=== PATIENT | female | born 1965 | race Caucasian/White ===

== ENCOUNTER 2016-09-15 14:15 | Observation (INO) | payer OTHER ==
[2016-09-15] MEDS ORDERED: Zofran 4 MG/2 ML VIAL IV ONE (14:40)
[2016-09-15] MEDS ORDERED: Sodium Chloride 0.9% 1000 ML 1,000 ML IV STA (14:40)
[2016-09-15] MEDS ORDERED: Klor Con 10 MEQ PO ONE ×2 (14:44→14:54)
--- NOTE | 2016-09-15 14:52 | ERPHSYRPT ---
- History of Present Illness Source: patient Exam Limitations: no limitations Patient Subjective Stated Complaint: patient states she has been home from [facility] for a few weeks. pt states she has been feeling weak over the past few days. pt states she has a hx of liver disease. pt denies any pain. Triage Nursing Assessment: pt jaundice, sclera yellow. pt warm, dry. pt afebrile. alert and oriented x3. Timing/Duration: week(s) Severity: moderate Character of Deficits: new weakness Deficits: no difficulties Baseline/Normal Cognition: alert oriented x 3 Current Cognition: alert oriented x 3 Baseline Gait: walks w/o assistance Associated Symptoms: fatigue, fever, chills, nausea, vomiting, weakness Hx Tetanus, Diphtheria Vaccination/Date Given: Yes (up to date) Hx Influenza Vaccination/Date Given: Yes Hx Pneumococcal Vaccination/Date Given: Yes Immunizations Up to Date: Yes <IRAJ CHRISTOPHER - Last Filed: 09/15/16 16:35> <CONSTANCE GARCIA - Last Filed: 09/16/16 08:59> - History of Present Illness Time Seen by Provider: 09/15/16 14:30 Physician History: 51 y/o female with history of MS, cirrhosis, tylenol overdose, baclofen overdose and recent liver failure who was just released from [facility] 2 weeks ago for liver failure comes to the ER with complaints of bilateral leg weakness, nausea, vomiting, yellowing of eyes and easy bruising. Pt mentions that last month she was transferred from [place] to [place] and then to [facility]. The patient mentions she was admitted for liver failure and was placed on IV antibiotics. Pt also admits to cough, runny nose and generalized weakness. Pt had labs done today which showed a total bili of 8.9, Hgb of 7.7 and a Mg of 0.8. (IRAJ CHRISTOPHER) Allergies/Adverse Reactions: No Known Drug Allergies Allergy (Unverified 09/15/16 14:26) Home Medications: Omeprazole [Prilosec] 20 mg PO DAILY 08/17/16 [History] - Review of Systems Constitutional: No Fever, No Chills Eyes: No Symptoms Ears, Nose, & Throat: No Symptoms Respiratory: Cough, No Dyspnea Cardiac: No Chest Pain, No Edema, No Syncope Abdominal/Gastrointestinal: Nausea, Vomiting, No Abdominal Pain, No Diarrhea Genitourinary Symptoms: No Dysuria Musculoskeletal: No Back Pain, No Neck Pain Skin: Skin Lesions, No Rash Neurological: Dizziness, Focal Weakness, No Sensory Changes Psychological: No Symptoms Endocrine: No Symptoms All Other Systems: Reviewed and Negative <IRAJ CHRISTOPHER - Last Filed: 09/15/16 16:35> - Past Medical History Pertinent Past Medical History: Yes Neurological History: Stroke, Other ENT History: No Pertinent History Cardiac History: No Pertinent History Respiratory History: Bronchitis Endocrine Medical History: No Pertinent History Musculoskeletal History: Other GI Medical History: Crohns Disease History: No Pertinent History Psycho-Social History: Depression Female Reproductive Disorders: Abnormal Uterine Bleeding Other Medical History: LUMBAR SPRAIN, TINEA CRURIS, MULTIPLE SCLEROSIS, MULTIPLE STROKES/TIA'S - Past Surgical History Past Surgical History: Yes Neuro Surgical History: No Pertinent History Cardiac: No Pertinent History Respiratory: No Pertinent History Gastrointestinal: Colon Resection Genitourinary: No Pertinent History Musculoskeletal: No Pertinent History Female Surgical History: Hysterectomy - Social History Smoking Status: Current every day smoker How long have you smoked: 35 Exposure to second hand smoke: No Drug Use: none Patient Lives Alone: No <IRAJ CHRISTOPHER - Last Filed: 09/15/16 16:35> - Stephy Coma Scale Best Eye Response (Stephy): (4) open spontaneously Best Verbal Response (Stephy): (5) oriented Best Motor Response (Stephy): (6) obeys commands [place] Total: 15 - Physical Exam General Appearance: no apparent distress, alert Eye Exam: bilateral eye: PERRL, EOMI Ears, Nose, Throat Exam: normal ENT inspection, moist mucous membranes Neck Exam: normal inspection, non-tender, supple Respiratory: normal breath sounds, lungs clear, airway intact, No respiratory distress Cardiovascular: regular rate/rhythm, No edema Gastrointestinal: soft, normal bowel sounds, No tenderness, No distention Back Exam: normal inspection Extremity Exam: normal inspection, No pedal edema Mental Status: alert, 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 Once again her bili is 8.9 with the last bili from that was 3.4. Pt has an ammonia level that is 100 but is not encephalopathic. The CT scan head and CXR are within normal limits. The abdominal US shows an enlarged liver. Pt has been accepted to [facility] for failure to thrive and liver failure (IRAJ CHRISTOPHER) patient is awaiting transfer to [facility] for recently diagnosed liver failure and elevated ammonia level. Apparently there are no beds available at [facility]. Dr. Jarrett was contacted and has agreed to admit patient until a bed becomes available. Patient was also given 2 g of magnesium and 40 mEq of KCl for magnesium level of 1.3 and potassium of 3. Patient has been hemodynamically stable throughout her ED stay. Patient was also given lactulose and this has decreased her ammonia along with improving her mental status as well. 09/16/16 08:53 (CONSTANCE GARCIA) - Departure Time of Disposition: 16:38 Departure Disposition: Transfer Critical Care Time: Yes Critical Care Time(excluding separately billable procedures): 75-104 minutes <IRAJ CHRISTOPHER - Last Filed: 09/15/16 16:35> - Departure Departure Disposition: Observation <CONSTANCE GARCIA - Last Filed: 09/16/16 08:59> - Departure Clinical Impression: Failure to thrive, Liver failure, Hypomagnesemia, Hypokalemia Condition: Stable Referrals: NAVIN TATE MD [Primary Care Provider] -
[2016-09-15] MEDS ORDERED: Zofran 4 MG/2 ML VIAL ONE (14:54)
[2016-09-15] MEDS ORDERED: Magnesium 1 Gm / 100 Ml D5W*** 200 ML IV ONE (14:55)
[2016-09-15] MEDS ORDERED: Sodium Chloride 0.9% 1000 ML 1,000 ML ONE (14:55)
[2016-09-15] MEDS: Magnesium 1 Gm / 100 Ml D5W*** 100 ML IV SCH ×2 (14:58→15:50)
[2016-09-15 15:23] LABS: INR 1.54 (0.8-3.0)
[2016-09-15 15:26] LABS: PTT 40.2 SECONDS (25.3-37.0)
[2016-09-15 15:30] LABS: Direct Bilirubin 5.85 MG/DL (0.0-0.2)
[2016-09-15 15:32] LABS: ACETAMINOPHEN < 2.0 ug/ml (10-30)
--- NOTE | 2016-09-15 15:37 | XRAY ---
Indication: Nausea, vomiting, dehydration. Comparison: August 17, 2016 AP/lateral chest hyperinflated and clear. Heart is not enlarged. Bony thorax intact. No new/acute findings.
--- NOTE | 2016-09-15 15:41 | XRAY ---
Indication: Lethargy. Leg weakness. Multiple contiguous axial images obtained through the head without contrast. Comparison: August 19, 2016 There are now tiny air bubbles in what appears to be the right parasellar internal carotid artery, presumed iatrogenic. Stable minimal periventricular degenerative micro-ischemia. No acute intracranial hemorrhage, abnormal extra-axial fluid collection, or mass effect. Fourth ventricle is midline without hydrocephalus. Mckay-white matter differentiation preserved. Bony calvarium intact. Visualized paranasal sinuses and mastoid air cells are pneumatized and clear. Impression: Air bubbles in the right parasellar internal carotid artery possibly iatrogenic from IV access. Stable degenerative micro-ischemia. No acute intracranial abnormalities. CT DI is 67.80
[2016-09-15 15:53] LABS: Collection Type CATH
[2016-09-15 15:54] LABS: ADD URINE CULTURE? NO (NO); COMPLETE URINE MICROSCOPIC? YES; Epithelial Cells RARE /HPF (FEW); Hyaline Casts 0-2 /LPF (0-2); WBC 0-2 /HPF (0-5)
[2016-09-15] MEDS ORDERED: Enulose 10 GM/15 ML PO ONE (16:45)
--- NOTE | 2016-09-15 22:34 | XRAY ---
Indication: Jaundice. Elevated bilirubin. Two-dimensional right upper quadrant abdominal sonogram performed. Comparison: None Gallbladder normally distended without gallstones, wall thickening, or pericholecystic fluid. Common bile duct measures 4.5 mm. No intrahepatic distention. Fatty echogenic liver without focal solid/cystic mass. No ascites. The remaining visualized pancreas and right kidney sonographically unremarkable. Right kidney measures 11.7 cm in length. Impression: Fatty liver. Remaining right upper quadrant sonogram is negative. Comment: Preliminary report was given.
[2016-09-16] MEDS ORDERED: Sodium Chloride 0.9% 1000 ML 1,000 ML IV SCH (05:30)
[2016-09-16] MEDS ORDERED: Sodium Chloride 0.9% 1000 ML 1,000 ML ONE (05:32)
[2016-09-16 08:08] LABS: ALBUMIN 2.5 g/dL (3.4-5.0); ALKALINE PHOSPHATASE 108 U/L (46-116); ANION GAP 15.6 MEQ/L (5-15); BILIRUBIN,TOTAL 7.6 mg/dL (0.2-1.0); BLOOD UREA NITROGEN 2 mg/dL (9-20); CHLORIDE 106 mEq/L (98-107); Direct Bilirubin 5.01 MG/DL (0.0-0.2); Glucose 99 MG/DL (70-110); SGOT/AST 126 U/L (15-37); SGPT/ALT 40 U/L (12-78); SODIUM 141 mEq/L (136-145); Total Protein 6.2 gm/dL (6.4-8.2)
[2016-09-16] MEDS ORDERED: Magnesium 1 Gm / 100 Ml D5W*** 100 ML IV SCH (08:30)
[2016-09-16] MEDS ORDERED: Magnesium Sulfate 1 GM/2 ML VIAL*** 2 GM in Sodium Chloride 0.9% 100 ML IVPB 100 ML IV ONE (08:45)
[2016-09-16 12:18] VITALS: BP 96/54; PULSE 101; O2SAT 94
[2016-09-16] MEDS ORDERED: LACTULOSE 20 GM/30ML UD CUP PO PRN (13:02)
--- NOTE | 2016-09-16 13:14 | PCM.HP ---
History of Present Illness - Chief Complaint Chief Complaint: Liver Failre Date: 09/16/16 History of Present Illness: is a 51 year old female. who was diagnosed with liver failure and was being treated at discharged on . She is unsure who she was to follow up with from that discharge. We have the discharge order from the hospitalization but none of the records are available yet re-requesting these now. She was seen in the ED due to increased weakness, inability to ambulate, increased yellow of her skin, easy bruising yesterday. Found to have ammonia of 100 and bilirubin of 8 which was increased from previous 3 per report. The ED made arrangments for tranfer to from ED however she stayed the night in the ED and no beds are available and thus she is placed [facility] for observation and continued treatment. She has no GI doctor she states. She is feeling better now with fluids she received. Had BM with the lactulose and is feeling better in this rearguard as well. - Review of Systems Constitutional: Fatigue, Lethargy, Malaise, No Fever, No Chills Eyes: No Discharge, No Eye Pain Ears, Nose, & Throat: No Ear Pain, No Ear Discharge, No Hearing Changes, No Tinnitus, No Sinus Drainage Respiratory: No Cough, No Orthopnea, No Short Of Breath Cardiac: No Chest Pain, No Edema, No Palpitations Abdominal/Gastrointestinal: Nausea, No Abdominal Pain, No Vomiting, No Diarrhea , No Constipation, No Melena Genitourinary Symptoms: No Dysuria, No Frequency, No Hematuria Musculoskeletal: No Arthralgias, No Back Pain Skin: No Cellulitis, No Decubiti, No Induration Neurological: No Dizziness, No Focal Weakness Psychological: No Alcohol Abuse, No Drug Abuse Endocrine: No Polyuria Hematologic/Lymphatic: Easy Bleeding, Easy Bruising, No Anemia, No Blood Clots Medications & Allergies Home Medications: Home Medication List Omeprazole [Prilosec] 20 mg PO DAILY 08/17/16 [History Confirmed 09/16/16] Ciprofloxacin HCl 500 mg [Cipro 500 MG] 500 mg PO DAILY 09/16/16 [History Confirmed 09/16/16] Magnesium Oxide [Magnesium] 400 mg PO BID 09/16/16 [History Confirmed 09/16/16] Miconazole Nitrate [Secura Antifungal] 92 gm TP BID 09/16/16 [History Confirmed 09/16/16] Potassium Chloride 20 Meq [Klor-Con 20 MEQ] 20 meq PO DAILY 09/16/16 [History Confirmed 09/16/16] Venlafaxine HCl [Venlafaxine HCl ER] 150 mg PO DAILY 09/16/16 [History Confirmed 09/16/16] Allergies/Adverse Reactions: Allergies Allergy/AdvReac Type Severity Reaction Status Date / Time No Known Drug Allergies Allergy Verified 09/16/16 10:08 - Past Medical History Past Medical History: Yes Neurological History: Stroke, Other ENT History: No Pertinent History Cardiac History: No Pertinent History Respiratory History: Bronchitis Endocrine Medical History: No Pertinent History Musculoskelatal History: Other GI Medical History: Cirrhosis, Crohns Disease History: No Pertinent History Pyscho-Social History: Depression Reproductive Disorders: Abnormal Uterine Bleeding Comment: LUMBAR SPRAIN, TINEA CRURIS, MULTIPLE SCLEROSIS, MULTIPLE STROKES/TIA'S - Female History Are you now?: No - Past Surgical History Past Surgical History: Yes Neuro Surgical History: No Pertinent History Cardiac History: No Pertinent History Respiratory Surgery: No Pertinent History GI Surgical History: Colon Resection Genitourinary Surgical Hx: No Pertinent History Musculskeletal Surgical Hx: Orthopedic Surgery Female Surgical History: Hysterectomy Other Surgical History: BACK - Social History Smoking Status: Current every day smoker How long have you smoked: 30+ Exposure to second hand smoke: Yes Alcohol: None Drug Use: none - Physical Exam Vital Signs: Vital Signs - 24 hr Temp Pulse Resp BP BP Pulse Ox 09/16/16 12:00 98.3 F 101 H 18 96/54 94 L 09/16/16 09:34 97.1 F 99 H 18 110/55 95 09/16/16 08:38 103 H 18 96/57 09/16/16 07:30 100 H 18 105/58 09/16/16 06:30 103 H 20 109/56 95 09/16/16 05:30 103 H 18 122/63 98 09/16/16 04:30 103 H 16 102/58 97 09/16/16 03:36 102 H 20 107/74 97 09/16/16 03:00 106 H 20 96 09/16/16 02:00 102 H 16 96 09/16/16 01:00 102 H 18 97 09/15/16 23:30 116 H 18 96 09/15/16 23:00 110 H 20 95 09/15/16 22:40 106 H 19 96 09/15/16 21:09 104 H 20 106/55 96 09/15/16 20:40 102 H 20 117/68 97 09/15/16 19:59 102 H 18 112/57 97 09/15/16 19:56 102 H 17 105/64 97 09/15/16 18:45 104 H 18 120/73 98 09/15/16 18:07 109 H 17 96/70 98 09/15/16 17:05 100 H 16 107/60 99 09/15/16 16:38 99 09/15/16 16:03 108 H 18 126/70 97 09/15/16 15:25 113 H 18 123/84 09/15/16 14:18 97.8 F 115 H 16 123/80 99 General Appearance: no apparent distress Neurologic Exam: alert, oriented x 3, cooperative Eye Exam: PERRL/EOMI, scleral icterus, pale conjunctivae Ears, Nose, Throat Exam: dry mucous membranes Neck Exam: non-tender, supple Respiratory Exam: normal breath sounds, lungs clear Cardiovascular Exam: regular rate/rhythm, normal heart sounds Gastrointestinal/Abdomen Exam: soft, normal bowel sounds, hepatomegaly, No tenderness, No distention, No mass Extremity Exam: normal inspection, No calf tenderness, No pedal edema Skin Exam: warm, dry, jaundice Assessment/Plan (1) Hepatic encephalopathy Current Visit: Yes Status: Acute Assessment & Plan: will try to get the rest of the records from her [facility] stay she states she had egd and does not think she has varices she is improving now and clear mentation but the large increase in bilirubin compared to previous in just 9 days. will continue lactulose as needed to keep stools >3 keep cipro for sbp ppx hold anticoags with the liver failure continue ppi repeat and replace mag and k will cut back fluid rate she apparently had ascities drained at [facility] also it sounds like but not sure if she had biopsy awaiting records discussed she needs to be established with copy coordinator for outpatient follow up of these issues. Code(s): K72.90 - HEPATIC FAILURE, UNSPECIFIED WITHOUT COMA (2) Hypokalemia Current Visit: Yes Status: Acute Code(s): E87.6 - HYPOKALEMIA (3) Hypomagnesemia Current Visit: Yes Status: Acute Code(s): E83.42 - HYPOMAGNESEMIA (4) Liver failure Current Visit: Yes Status: Acute
[2016-09-16 14:51] LABS: ANION GAP 16.4 MEQ/L (5-15); Carbon Dioxide 21.6 mEq/L (21-32); MAGNESIUM 1.7 mg/dL (1.8-2.4)
[2016-09-16] MEDS ORDERED: MAG-OX 400 PO SCH (15:00)
[2016-09-16] MEDS ORDERED: Cipro 500 MG PO SCH (15:00)
[2016-09-16] MEDS ORDERED: Protonix 40MG Tablet PO SCH (15:00)
[2016-09-16] MEDS ORDERED: Effexor XR 75 MG PO SCH (15:00)
[2016-09-16 15:02] LABS: Potassium 2.8 mEq/L (3.5-5.1)
[2016-09-16] MEDS ORDERED: Klor Con 10 MEQ PO ONE (15:04)
[2016-09-17] MEDS ORDERED: NON-FORMULARY ITEM (Omeprazole [Prilosec] 20 MG) PO SCH (10:00)
[2016-09-17] MEDS ORDERED: Klor Con 10 MEQ PO SCH (10:00)
[2016-09-17] MEDS ORDERED: NON-FORMULARY ITEM (Venlafaxine Hcl [Venlafaxine Hcl Er] 150 MG) PO SCH (10:00)
[2016-09-17] MEDS ORDERED: NON-FORMULARY ITEM (Potassium Chloride 20 Meq [Klor-Con 20 Meq] 20 MEQ) PO SCH (10:00)
== END 2016-09-16 15:30 | disposition short-term general hospital (02) ==
LOC: ED 14:15 → MED SURG 09-16 09:33
PROVIDERS: ADMIT Family Medicine; ATTEND Family Medicine
DX: K72.90 Hepatic failure, unspecified without coma (principal); E87.6 Hypokalemia; E83.42 Hypomagnesemia
CPT/HCPCS: 36000; 36415; 70450; 71020; 76705; 80048; 80053; 80307; 81000; 82140; 82248; 83735; 85610; 85730; 86850; 86900; 86901; 87040; 96360; 96361; 96365; 96366; 96374; 99285; G0378; G0479; G0481; J2405; J3475; P9612

== ENCOUNTER 2016-09-28 13:56 | Inpatient (IN) | payer OTHER ==
[2016-09-28] MEDS ORDERED: Sodium Chloride 0.9% 1000 ML 1,000 ML IV STA (14:19)
[2016-09-28] MEDS ORDERED: Zofran 4 MG/2 ML VIAL IV ONE (14:19)
[2016-09-28] MEDS ORDERED: Zofran 4 MG/2 ML VIAL ONE (14:23)
[2016-09-28] MEDS ORDERED: Sodium Chloride 0.9% 1000 ML 1,000 ML ONE ×2 (14:23→16:05)
[2016-09-28] MEDS ORDERED: PROTONIX 40 MG IV IV ONE ×2 (14:27→14:50)
--- NOTE | 2016-09-28 14:42 | ERPHSYRPT ---
- History of Present Illness Time Seen by Provider: 09/28/16 14:10 Historian: patient Exam Limitations: clinical condition Patient Subjective Stated Complaint: pt sent here by dr maciel to be seen for possible fluids. pt states she is weak,dry heaves today, able to keep eat and drink today, loose stools last 2 days, Triage Nursing Assessment: pt alert but weak, able to get from wc to bed with assist of one,pt is armida, she states she has liver failure, and working getting on liver transplant list Physician History: PATIENT WITH HISTORY OF END STAGE LIVER DISEASE, MUTIPLE SCLEROSIS, ACETOMINOPHEN AND BACOFEN OVERDOSES, RECENTLY RELEASED FROM [facility] ON 09/23/2016 AFTER A 1 WEEK HOSPITALIZATION, NOW COMPLAINS OF DRY HEAVES OCCASIONAL EMESIS PAST FEW DAYS ASSOCIATED WITH GENERALIZED ABDOMINAL PAINS, WEAKNESS. DENIES FEVER, CHILLS COUGH. Timing/Duration: day(s) Activities at Onset: activity Quality: throbbing Abdominal Pain Onset Location: generalized abdomen Pain Radiation: no radiation Severity of Pain-Max: moderate Severity of Pain-Current: moderate Associated Symptoms: diarrhea, fatigue, nausea, vomiting Previous symptoms: same symptoms as today Allergies/Adverse Reactions: No Known Drug Allergies Allergy (Verified 09/28/16 14:09) Home Medications: Omeprazole [Prilosec] 20 mg PO DAILY 08/17/16 [History] Ciprofloxacin HCl 500 mg [Cipro 500 MG] 500 mg PO DAILY 09/16/16 [History] Magnesium Oxide [Magnesium] 400 mg PO BID 09/16/16 [History] Miconazole Nitrate [Secura Antifungal] 92 gm TP BID 09/16/16 [History] Potassium Chloride 20 Meq [Klor-Con 20 MEQ] 20 meq PO DAILY 09/16/16 [History] Venlafaxine HCl [Venlafaxine HCl ER] 150 mg PO DAILY 09/16/16 [History] Hx Tetanus, Diphtheria Vaccination/Date Given: Yes (up to date) Hx Influenza Vaccination/Date Given: Yes Hx Pneumococcal Vaccination/Date Given: No Immunizations Up to Date: Yes - Review of Systems Constitutional: Weakness, No Fever, No Chills Eyes: Other (JAUNDICE ) Ears, Nose, & Throat: No Symptoms Respiratory: No Symptoms, No Cough, No Dyspnea Cardiac: No Symptoms, No Chest Pain, No Edema, No Syncope Abdominal/Gastrointestinal: Abdominal Pain, Vomiting, No Nausea, No Diarrhea Genitourinary Symptoms: No Symptoms, No Dysuria Musculoskeletal: No Symptoms, No Back Pain, No Neck Pain Skin: No Rash Neurological: No Symptoms, No Dizziness, No Focal Weakness, No Sensory Changes Psychological: No Symptoms Endocrine: No Symptoms All Other Systems: Reviewed and Negative - Past Medical History Pertinent Past Medical History: Yes Neurological History: Stroke, Other ENT History: No Pertinent History Cardiac History: No Pertinent History Respiratory History: Bronchitis Endocrine Medical History: No Pertinent History Musculoskeletal History: Other GI Medical History: Cirrhosis, Crohns Disease History: No Pertinent History Psycho-Social History: Depression Female Reproductive Disorders: Abnormal Uterine Bleeding Other Medical History: LUMBAR SPRAIN, TINEA CRURIS, MULTIPLE SCLEROSIS, MULTIPLE STROKES/TIA'S - Past Surgical History Past Surgical History: Yes Neuro Surgical History: No Pertinent History Cardiac: No Pertinent History Respiratory: No Pertinent History Gastrointestinal: Colon Resection Genitourinary: No Pertinent History Musculoskeletal: Orthopedic Surgery Female Surgical History: Hysterectomy Other Surgical History: BACK - Social History Smoking Status: Current some day smoker How long have you smoked: 30+ Exposure to second hand smoke: Yes Drug Use: none Patient Lives Alone: Yes - Female History Hx Last Menstrual Period: post - Nursing Vital Signs Nursing Vital Signs: Initial Vital Signs Temperature 98.3 F Temperature Source Oral Pulse Rate 109 Respiratory Rate 16 Blood Pressure [] 102/47 Pain Intensity 8 - Physical Exam General Appearance: no apparent distress, alert Eye Exam: PERRL/EOMI, eyes nml inspection, scleral icterus Ears, Nose, Throat Exam: normal ENT inspection, pharynx normal, moist mucous membranes Neck Exam: normal inspection, non-tender, supple, full range of motion Respiratory Exam: normal breath sounds, lungs clear, No respiratory distress Cardiovascular Exam: regular rate/rhythm, normal heart sounds Gastrointestinal/Abdomen Exam: soft, normal bowel sounds, No tenderness ( PERIUMBILICAL TENDERNESS), No mass Back Exam: normal inspection, normal range of motion, No CVA tenderness, No vertebral tenderness Extremity Exam: normal inspection, normal range of motion, pelvis stable Neurologic Exam: alert, oriented x 3, cooperative, normal mood/affect, nml cerebellar function, sensation nml, No motor deficits Skin Exam: normal color, warm, dry SpO2 Interpretation: normal SpO2: 95 Oxygen Delivery: Room Air - Course EKG Interpreted by Me: RATE, Sinus Rhythm, Sinus Tach, NORMAL AXIS - Radiology Exams Chest X-ray Interpretation: Discussed w/ radiologist, Negative, No Infiltrates Ordered Tests: Active Orders 24 hr Category Date Time Status Clean Catch Urine Specimen STAT Care 09/28/16 14:19 Active EKG-ER Only STAT Care 09/28/16 14:22 Active IV Insertion STAT Care 09/28/16 14:19 Active CHEST 1 VIEW (PORTABLE) Stat Exams 09/28/16 14:44 Completed AMYLASE Stat Lab 09/28/16 14:20 Completed BLOOD CULTURE Stat Lab 09/28/16 14:51 Received CBC W DIFF Stat Lab 09/28/16 14:20 Completed CMP Stat Lab 09/28/16 14:20 Completed LIPASE Stat Lab 09/28/16 14:20 Completed Lactic Acid Urgent Lab 09/28/16 14:40 Completed MAG [MAGNESIUM] Stat Lab 09/28/16 14:20 Completed PROTIME WITH INR Stat Lab 09/28/16 14:20 Completed TROPONIN Q3H Lab 09/28/16 15:10 Completed TROPONIN Q3H Lab 09/28/16 17:30 Ordered TROPONIN Q3H Lab 09/28/16 20:30 Ordered TROPONIN Q3H Lab 09/28/16 23:30 Ordered TROPONIN Q3H Lab 09/29/16 02:30 Ordered UA Stat Lab 09/28/16 14:20 Ordered Transfer Order Routine Transfer 09/28/16 15:45 Ordered Medication Summary Generic Name Dose Route Start Last Admin Trade Name Freq PRN Reason Stop Dose Admin Potassium Chloride 100 mls @ 50 mls/hr 09/28/16 15:22 09/28/16 15:31 Potassium Chloride 20 Meq In Water 100ml IV 09/28/16 17:21 50 mls/hr STAT ONE Administration Discontinued Medications Generic Name Dose Route Start Last Admin Trade Name Freq PRN Reason Stop Dose Admin Fentanyl Citrate 100 mcg 09/28/16 14:58 09/28/16 15:03 Sublimaze 100 Mcg/2 Ml IV 09/28/16 14:59 100 mcg STAT ONE Administration Fentanyl Citrate Confirm 09/28/16 15:03 Sublimaze 100 Mcg/2 Ml Administered 09/28/16 15:04 Dose 100 mcg .ROUTE .STK-MED ONE Sodium Chloride 1,000 mls @ 999 mls/hr 09/28/16 14:19 09/28/16 14:26 Sodium Chloride 0.9% 1000 Ml IV 09/28/16 15:19 999 mls/hr .Q1H1M STA Administration Sodium Chloride Confirm 09/28/16 14:23 Sodium Chloride 0.9% 1000 Ml Administered 09/28/16 14:24 Dose 1,000 mls @ ud .ROUTE .STK-MED ONE Magnesium Sulfate/Dextrose Confirm 09/28/16 15:29 Magnesium 1 Gm / 100 Ml D5w Administered 09/28/16 15:30 Dose 100 mls @ ud IV .STK-MED ONE Potassium Chloride Confirm 09/28/16 15:29 Potassium Chloride 20 Meq In Water 100ml Administered 09/28/16 15:30 Dose 100 mls @ ud IV .STK-MED ONE Lactulose 20 g 09/28/16 15:23 09/28/16 15:38 Enulose 10 Gm/15 Ml PO 09/28/16 15:24 20 g STAT ONE Administration Magnesium Sulfate 2 gm 09/28/16 15:21 09/28/16 15:38 Magnesium Sulfate 1 Gm/2 Ml Vial IV 09/28/16 15:22 2 gm STAT ONE Administration Ondansetron HCl 4 mg 09/28/16 14:19 09/28/16 14:26 Zofran 4 Mg/2 Ml Vial IV 09/28/16 14:20 4 mg STAT ONE Administration Ondansetron HCl Confirm 09/28/16 14:23 Zofran 4 Mg/2 Ml Vial Administered 09/28/16 14:24 Dose 4 mg .ROUTE .STK-MED ONE Pantoprazole Sodium 40 mg 09/28/16 14:27 09/28/16 14:53 Protonix 40 Mg Iv IV 09/28/16 14:28 40 mg STAT ONE Administration Pantoprazole Sodium Confirm 09/28/16 14:50 Protonix 40 Mg Iv Administered 09/28/16 14:51 Dose 40 mg IV .STK-MED ONE Lab/Rad Data: Laboratory Result Diagrams 09/28/16 14:20 09/28/16 14:20 Laboratory Results 09/28/16 09/28/16 09/28/16 Range/Units 15:10 14:40 14:20 WBC (4.0-10.5) K/mm3 RBC (4.1-5.4) M/mm3 Hgb (12.0-16.0) gm/dl Hct (35-47) % MCV (78-100) fl MCH (26-32) pg MCHC (32-36) g/dl RDW (11.5-14.0) % Plt Count (150-450) K/mm3 MPV (6-9.5) fl Gran % (36.0-66.0) % Lymphocytes % (24.0-44.0) % Monocytes % (0.0-12.0) % Eosinophils % (0.00-5.0) % Basophils % (0.0-0.4) % Basophils # (0-0.4) INR (0.8-3.0) Sodium (136-145) mEq/L Potassium (3.5-5.1) mEq/L Chloride (98-107) mEq/L Carbon Dioxide (21-32) mEq/L Anion Gap (5-15) MEQ/L BUN (9-20) mg/dL Creatinine (0.55-1.30) mg/dl Estimated GFR ML/MIN Glucose (70-110) MG/DL Lactic Acid 1.9 (0.4-2.0) Calcium (8.5-10.1) mg/dL Magnesium 1.0 L* (1.8-2.4) mg/dL Total Bilirubin (0.2-1.0) mg/dL AST (15-37) U/L ALT (12-78) U/L Alkaline Phosphatase (46-116) U/L Ammonia (11-32) MMOL/l Troponin I < 0.017 (0.000-0.056) ng/ml Serum Total Protein (6.4-8.2) gm/dL Albumin (3.4-5.0) g/dL Amylase (25-115) U/L Lipase (73-393) U/L 09/28/16 09/28/16 09/28/16 Range/Units 14:20 14:20 14:20 WBC (4.0-10.5) K/mm3 RBC (4.1-5.4) M/mm3 Hgb (12.0-16.0) gm/dl Hct (35-47) % MCV (78-100) fl MCH (26-32) pg MCHC (32-36) g/dl RDW (11.5-14.0) % Plt Count (150-450) K/mm3 MPV (6-9.5) fl Gran % (36.0-66.0) % Lymphocytes % (24.0-44.0) % Monocytes % (0.0-12.0) % Eosinophils % (0.00-5.0) % Basophils % (0.0-0.4) % Basophils # (0-0.4) INR 1.57 (0.8-3.0) Sodium 141 (136-145) mEq/L Potassium 2.5 L* (3.5-5.1) mEq/L Chloride 101 (98-107) mEq/L Carbon Dioxide 23.7 (21-32) mEq/L Anion Gap 19.3 H (5-15) MEQ/L BUN 11 (9-20) mg/dL Creatinine 1.10 (0.55-1.30) mg/dl Estimated GFR 56 ML/MIN Glucose 73 (70-110) MG/DL Lactic Acid (0.4-2.0) Calcium 8.2 L (8.5-10.1) mg/dL Magnesium (1.8-2.4) mg/dL Total Bilirubin 10.6 H (0.2-1.0) mg/dL AST 140 H (15-37) U/L ALT 50 (12-78) U/L Alkaline Phosphatase 144 H (46-116) U/L Ammonia 59 H (11-32) MMOL/l Troponin I (0.000-0.056) ng/ml Serum Total Protein 7.2 (6.4-8.2) gm/dL Albumin 2.5 L (3.4-5.0) g/dL Amylase 19 L (25-115) U/L Lipase 54 L (73-393) U/L / Range/Units 14:20 WBC 10.4 (4.0-10.5) K/mm3 RBC 2.65 L (4.1-5.4) M/mm3 Hgb 9.0 L (12.0-16.0) gm/dl Hct 28.1 L (35-47) % MCV 106.0 H (78-100) fl MCH 33.9 H (26-32) pg MCHC 32.0 (32-36) g/dl RDW 19.3 H (11.5-14.0) % Plt Count 212 (150-450) K/mm3 MPV 11.7 H (6-9.5) fl Gran % 73.4 H (36.0-66.0) % Lymphocytes % 17.3 L (24.0-44.0) % Monocytes % 8.6 (0.0-12.0) % Eosinophils % 0.5 (0.00-5.0) % Basophils % 0.2 (0.0-0.4) % Basophils # 0.02 (0-0.4) INR (0.8-3.0) Sodium (136-145) mEq/L Potassium (3.5-5.1) mEq/L Chloride (98-107) mEq/L Carbon Dioxide (21-32) mEq/L Anion Gap (5-15) MEQ/L BUN (9-20) mg/dL Creatinine (0.55-1.30) mg/dl Estimated GFR ML/MIN Glucose (70-110) MG/DL Lactic Acid (0.4-2.0) Calcium (8.5-10.1) mg/dL Magnesium (1.8-2.4) mg/dL Total Bilirubin (0.2-1.0) mg/dL AST (15-37) U/L ALT (12-78) U/L Alkaline Phosphatase (46-116) U/L Ammonia (11-32) MMOL/l Troponin I (0.000-0.056) ng/ml Serum Total Protein (6.4-8.2) gm/dL Albumin (3.4-5.0) g/dL Amylase (25-115) U/L Lipase (73-393) U/L - Progress Progress Note: 09/28/16 15:51 PATIENT GIVEN BOLUS NORMAL SALINE 1 LITER OVER 1 HOUR, LACTULOSE 20GM FOR AMMONIA LEVEL 59, K-NAOMY 20MEQ IVPB FOR K-2.5 AND MAG SULFATE 2GM IVPB FOR MG- 1 Discussed with : Eliseo Will see patient in: hospital (full admit) (AT 1530 FOR ADMISSION) - Departure Time of Disposition: 16:00 Departure Disposition: In-patient Admission Clinical Impression: CIRRHOSIS WITH ENCEPHALOPATHY, HYPOKALEMIA, HYPOMAGNESEMIA Condition: Stable Critical Care Time: No Referrals: NAVIN MACIEL MD [Primary Care Provider] -
[2016-09-28 14:58] LABS: BASOPHIL % 0.2 % (0.0-0.4); Eosinophil % 0.5 % (0.00-5.0); Granulocytes % 73.4 % (36.0-66.0); Lymphocytes % 17.3 % (24.0-44.0); Mean Platelet Volume 11.7 fl (6-9.5); Monocytes % 8.6 % (0.0-12.0); Platelet Count 212 K/mm3 (150-450); Red Blood Count 2.65 M/mm3 (4.1-5.4); Red Cell Distribution Width 19.3 % (11.5-14.0); White Blood Count 10.4 K/mm3 (4.0-10.5)
[2016-09-28] MEDS ORDERED: SUBLIMAZE 100 MCG/2 ML IV ONE (14:58)
[2016-09-28 15:01] LABS: Mean Corpuscular Hemoglobin 33.9 pg (26-32)
[2016-09-28] MEDS ORDERED: SUBLIMAZE 100 MCG/2 ML ONE (15:03)
--- NOTE | 2016-09-28 15:05 | XRAY ---
Indication: Dyspnea. Jaundice. Comparison: September 15, 2016 Portable chest underinflated today and remains clear. Heart is not enlarged. No new/acute findings. Impression: Stable nonacute underinflated chest.
[2016-09-28 15:09] LABS: INR 1.57 (0.8-3.0); PROTIME 17.4 SECONDS (9.95-12.35)
[2016-09-28 15:17] LABS: ALBUMIN 2.5 g/dL (3.4-5.0); ANION GAP 19.3 MEQ/L (5-15); BILIRUBIN,TOTAL 10.6 mg/dL (0.2-1.0); Carbon Dioxide 23.7 mEq/L (21-32); Total Protein 7.2 gm/dL (6.4-8.2)
[2016-09-28 15:20] LABS: Potassium 2.5 mEq/L (3.5-5.1)
[2016-09-28] MEDS ORDERED: Magnesium Sulfate 1 GM/2 ML VIAL IV ONE (15:21)
[2016-09-28] MEDS ORDERED: POTASSIUM CHLORIDE 20 mEq IN WATER 100ML 100 ML IV ONE ×3 (15:22→17:34)
[2016-09-28] MEDS ORDERED: Enulose 10 GM/15 ML PO ONE (15:23)
[2016-09-28] MEDS ORDERED: Magnesium 1 Gm / 100 Ml D5W*** 100 ML IV ONE (15:29)
[2016-09-28] MEDS ORDERED: Sodium Chloride 0.9% 1000 ML 1,000 ML IV SCH (16:15)
[2016-09-28 17:11] LABS: Collection Type CATH
[2016-09-28 17:12] LABS: COMPLETE URINE MICROSCOPIC? YES; Ph 5.5 (5-6)
[2016-09-28] MEDS: PROTONIX 40 MG IV IV SCH (17:47)
[2016-09-28] MEDS: Sodium Chloride 0.9% W/ 20 mEq KCl/LITER 1,000 ML IV SCH (17:58)
[2016-09-28 20:04] LABS: WBC 0-2 /HPF (0-5)
[2016-09-28 20:05] LABS: Bacteria RARE /HPF (NEGATIVE); Epithelial Cells FEW /HPF (FEW)
[2016-09-28] MEDS: FLAGYL 500 MG IVPB 100 ML IV SCH (23:11)
[2016-09-28 23:30] LABS: Potassium 2.7 mEq/L (3.5-5.1); TROPONIN < 0.017 ng/ml (0.000-0.056)
[2016-09-28] MEDS ORDERED: POTASSIUM CHLORIDE 20 mEq IN WATER 100ML 100 ML IV SCH (23:45)
[2016-09-29] MEDS: POTASSIUM CHLORIDE 20 mEq IN WATER 100ML 100 ML IV SCH ×3 (00:26→02:55)
[2016-09-29] MEDS: Sodium Chloride 0.9% W/ 20 mEq KCl/LITER 1,000 ML IV SCH ×2 (05:12→17:40)
[2016-09-29 05:35] LABS: BASOPHIL % 0.4 % (0.0-0.4); Eosinophil % 1.3 % (0.00-5.0); Granulocytes % 60.2 % (36.0-66.0); Mean Cell Volume 107.4 fl (78-100); Mean Corpuscular Hemoglobin 33.8 pg (26-32); Mean Platelet Volume 11.5 fl (6-9.5); Monocytes % 11.1 % (0.0-12.0); Platelet Count 122 K/mm3 (150-450); Red Blood Count 2.04 M/mm3 (4.1-5.4); Red Cell Distribution Width 19.1 % (11.5-14.0); White Blood Count 5.3 K/mm3 (4.0-10.5)
[2016-09-29] MEDS: FLAGYL 500 MG IVPB 100 ML IV SCH ×3 (05:58→17:39)
[2016-09-29 06:06] LABS: ANION GAP 13.7 MEQ/L (5-15); BLOOD UREA NITROGEN 7 mg/dL (9-20); CHLORIDE 107 mEq/L (98-107); Carbon Dioxide 21.1 mEq/L (21-32); Glucose 56 MG/DL (70-110); Potassium 3.3 mEq/L (3.5-5.1); SODIUM 139 mEq/L (136-145)
[2016-09-29] MEDS ORDERED: Magnesium Sulfate 1 GM/2 ML VIAL IV ONE (08:27)
--- NOTE | 2016-09-29 08:27 | PCM.HP ---
History of Present Illness - Chief Complaint Chief Complaint: Cirrhosis w/ encephalopathy; hypokalemia; hypomagnesemia History of Present Illness: is a 51 year old female who reported to the ER feeling shakey and weak. She recently was diagnosed with cirrhosis and had a bout of c diff at in [place]. She has had diarrhea again the last few days. she denies blood in her stool - Review of Systems Constitutional: Weakness Respiratory: No Cough, No Short Of Breath Cardiac: No Chest Pain, No Edema, No Syncope Abdominal/Gastrointestinal: Diarrhea, No Nausea, No Vomiting, No Constipation Genitourinary Symptoms: No Dysuria Skin: No Rash All Other Systems: Reviewed and Negative Medications & Allergies Home Medications: Home Medication List Omeprazole [Prilosec] 20 mg PO DAILY 08/17/16 [History Confirmed 09/16/16] Ciprofloxacin HCl 500 mg [Cipro 500 MG] 500 mg PO DAILY 09/16/16 [History Confirmed 09/16/16] Magnesium Oxide [Magnesium] 400 mg PO BID 09/16/16 [History Confirmed 09/16/16] Miconazole Nitrate [Secura Antifungal] 92 gm TP BID 09/16/16 [History Confirmed 09/16/16] Potassium Chloride 20 Meq [Klor-Con 20 MEQ] 20 meq PO DAILY 09/16/16 [History Confirmed 09/16/16] Venlafaxine HCl [Venlafaxine HCl ER] 150 mg PO DAILY 09/16/16 [History Confirmed 09/16/16] Allergies/Adverse Reactions: Allergies Allergy/AdvReac Type Severity Reaction Status Date / Time No Known Drug Allergies Allergy Verified 09/28/16 17:51 - Past Medical History Past Medical History: Yes Neurological History: Stroke, Other ENT History: No Pertinent History Cardiac History: No Pertinent History Respiratory History: Bronchitis Endocrine Medical History: No Pertinent History Musculoskelatal History: Other GI Medical History: Cirrhosis, Crohns Disease History: No Pertinent History Pyscho-Social History: Depression Reproductive Disorders: Abnormal Uterine Bleeding Comment: LUMBAR SPRAIN, TINEA CRURIS, MULTIPLE SCLEROSIS, MULTIPLE STROKES/TIA'S - Female History Hx Last Menstrual Period: post Are you now?: No - Past Surgical History Past Surgical History: Yes Neuro Surgical History: No Pertinent History Cardiac History: No Pertinent History Respiratory Surgery: No Pertinent History GI Surgical History: Colon Resection Genitourinary Surgical Hx: No Pertinent History Musculskeletal Surgical Hx: Orthopedic Surgery Female Surgical History: Hysterectomy Other Surgical History: BACK - Social History Smoking Status: Current every day smoker How long have you smoked: 30 + Exposure to second hand smoke: Yes Alcohol: None Drug Use: none - Physical Exam Vital Signs: Vital Signs - 24 hr Temp Pulse Resp BP Pulse Ox 09/29/16 07:30 97.9 F 106 H 18 102/58 94 L 09/29/16 04:00 98.0 F 103 H 18 96/49 94 L 09/29/16 00:00 97.9 F 101 H 16 118/76 96 09/28/16 20:21 107 H 18 93 L 09/28/16 18:01 97.8 F 104 H 19 114/82 94 L 09/28/16 17:38 70 16 124/67 97 09/28/16 17:34 94 L 09/28/16 16:09 109 H 16 124/73 97 09/28/16 15:53 95 09/28/16 15:14 109 H 16 102/47 97 09/28/16 14:01 98.3 F 99 H 16 134/90 95 General Appearance: no apparent distress, alert Neurologic Exam: alert, oriented x 3 Eye Exam: scleral icterus Respiratory Exam: normal breath sounds, lungs clear, No respiratory distress Cardiovascular Exam: regular rate/rhythm, normal heart sounds, normal peripheral pulses Gastrointestinal/Abdomen Exam: soft, normal bowel sounds, No tenderness, No mass Skin Exam: jaundice Results - Labs Lab/Micro Results: Lab Results-Last 24 Hours 09/28/16 09/28/16 09/28/16 Range/Units 17:43 20:35 23:15 WBC (4.0-10.5) K/mm3 RBC (4.1-5.4) M/mm3 Hgb (12.0-16.0) gm/dl Hct (35-47) % MCV (78-100) fl MCH (26-32) pg MCHC (32-36) g/dl RDW (11.5-14.0) % Plt Count (150-450) K/mm3 MPV (6-9.5) fl Gran % (36.0-66.0) % Lymphocytes % (24.0-44.0) % Monocytes % (0.0-12.0) % Eosinophils % (0.00-5.0) % Basophils % (0.0-0.4) % Basophils # (0-0.4) Sodium (136-145) mEq/L Potassium 2.7 L* (3.5-5.1) mEq/L Chloride (98-107) mEq/L Carbon Dioxide (21-32) mEq/L Anion Gap (5-15) MEQ/L BUN (9-20) mg/dL Creatinine (0.55-1.30) mg/dl Estimated GFR ML/MIN Glucose (70-110) MG/DL Calcium (8.5-10.1) mg/dL Magnesium (1.8-2.4) mg/dL Troponin I 0.019 0.019 < 0.017 (0.000-0.056) ng/ml 09/29/16 09/29/16 09/29/16 Range/Units 02:30 05:13 05:13 WBC 5.3 (4.0-10.5) K/mm3 RBC 2.04 L (4.1-5.4) M/mm3 Hgb 6.9 L* (12.0-16.0) gm/dl Hct 21.9 L (35-47) % MCV 107.4 H (78-100) fl MCH 33.8 H (26-32) pg MCHC 31.5 L (32-36) g/dl RDW 19.1 H (11.5-14.0) % Plt Count 122 L (150-450) K/mm3 MPV 11.5 H (6-9.5) fl Gran % 60.2 (36.0-66.0) % Lymphocytes % 27.0 (24.0-44.0) % Monocytes % 11.1 (0.0-12.0) % Eosinophils % 1.3 (0.00-5.0) % Basophils % 0.4 (0.0-0.4) % Basophils # 0.02 (0-0.4) Sodium 139 (136-145) mEq/L Potassium 3.3 L (3.5-5.1) mEq/L Chloride 107 (98-107) mEq/L Carbon Dioxide 21.1 (21-32) mEq/L Anion Gap 13.7 (5-15) MEQ/L BUN 7 L (9-20) mg/dL Creatinine 0.94 (0.55-1.30) mg/dl Estimated GFR > 60 ML/MIN Glucose 56 L (70-110) MG/DL Calcium 7.3 L (8.5-10.1) mg/dL Magnesium (1.8-2.4) mg/dL Troponin I < 0.017 (0.000-0.056) ng/ml 09/29/16 Range/Units 05:13 WBC (4.0-10.5) K/mm3 RBC (4.1-5.4) M/mm3 Hgb (12.0-16.0) gm/dl Hct (35-47) % MCV (78-100) fl MCH (26-32) pg MCHC (32-36) g/dl RDW (11.5-14.0) % Plt Count (150-450) K/mm3 MPV (6-9.5) fl Gran % (36.0-66.0) % Lymphocytes % (24.0-44.0) % Monocytes % (0.0-12.0) % Eosinophils % (0.00-5.0) % Basophils % (0.0-0.4) % Basophils # (0-0.4) Sodium (136-145) mEq/L Potassium (3.5-5.1) mEq/L Chloride (98-107) mEq/L Carbon Dioxide (21-32) mEq/L Anion Gap (5-15) MEQ/L BUN (9-20) mg/dL Creatinine (0.55-1.30) mg/dl Estimated GFR ML/MIN Glucose (70-110) MG/DL Calcium (8.5-10.1) mg/dL Magnesium 1.4 L (1.8-2.4) mg/dL Troponin I (0.000-0.056) ng/ml Assessment/Plan (1) C. difficile colitis Current Visit: Yes Status: Acute Assessment & Plan: continue flagyl at this time, will also add po vancomycin due to recurrent infection after treatment with last hospitalization (2) Cirrhosis Current Visit: Yes Status: Acute (3) Hypokalemia Current Visit: No Status: Acute Assessment & Plan: replacing, improving at this time Code(s): E87.6 - HYPOKALEMIA (4) Hypomagnesemia Current Visit: No Status: Acute Assessment & Plan: will replace Code(s): E83.42 - HYPOMAGNESEMIA (5) Failure to thrive Current Visit: No Status: Acute Code(s): FRT0260 -
[2016-09-29] MEDS: VANCOMYCIN 25MG/ML COMPOUND KIT PO SCH ×4 (09:22→21:34)
[2016-09-29] MEDS: Magnesium 1 Gm / 100 Ml D5W*** 100 ML IV SCH ×2 (09:23→10:18)
[2016-09-29] MEDS ORDERED: Sodium Chloride 0.9% 500 ML 500 ML IV ONE (09:44)
[2016-09-29] MEDS ORDERED: VANCOCIN 500 MG VIAL PO SCH (10:00)
[2016-09-29] MEDS: Norco 10/325 MG Tablet PO PRN (17:40)
[2016-09-29] MEDS: PROTONIX 40 MG IV IV SCH (17:40)
[2016-09-30] MEDS: FLAGYL 500 MG IVPB 100 ML IV SCH ×4 (01:27→17:48)
[2016-09-30] MEDS: Norco 10/325 MG Tablet PO PRN ×2 (02:23→21:46)
[2016-09-30] MEDS: Sodium Chloride 0.9% W/ 20 mEq KCl/LITER 1,000 ML IV SCH ×2 (05:42→17:48)
[2016-09-30 05:56] LABS: BASOPHIL % 0.2 % (0.0-0.4); Eosinophil % 1.1 % (0.00-5.0); Granulocytes % 62.2 % (36.0-66.0); Lymphocytes % 25.1 % (24.0-44.0); Mean Cell Volume 103.5 fl (78-100); Mean Platelet Volume 11.6 fl (6-9.5); Monocytes % 11.4 % (0.0-12.0); Platelet Count 115 K/mm3 (150-450); Red Blood Count 2.57 M/mm3 (4.1-5.4); Red Cell Distribution Width 21.7 % (11.5-14.0); White Blood Count 5.3 K/mm3 (4.0-10.5)
[2016-09-30 06:11] LABS: INR 1.59 (0.8-3.0); PROTIME 17.6 SECONDS (9.95-12.35)
[2016-09-30 06:21] LABS: ALBUMIN 1.9 g/dL (3.4-5.0); ALKALINE PHOSPHATASE 112 U/L (46-116); ANION GAP 14.3 MEQ/L (5-15); BILIRUBIN,TOTAL 11.8 mg/dL (0.2-1.0); BLOOD UREA NITROGEN 6 mg/dL (9-20); CHLORIDE 105 mEq/L (98-107); Carbon Dioxide 22.4 mEq/L (21-32); Glucose 90 MG/DL (70-110); MAGNESIUM 1.3 mg/dL (1.8-2.4); Potassium 3.3 mEq/L (3.5-5.1); SGOT/AST 115 U/L (15-37); SGPT/ALT 37 U/L (12-78); SODIUM 138 mEq/L (136-145)
[2016-09-30 06:25] LABS: Mean Corpuscular Hemoglobin 33.8 pg (26-32)
[2016-09-30] MEDS: VANCOMYCIN 25MG/ML COMPOUND KIT PO SCH ×4 (09:58→21:46)
--- NOTE | 2016-09-30 10:30 | PCM.NOTE ---
Date and Time: 09/30/16 1026 Subjective Assessment: Pt is feeling much better. Two loose stools this morning. Tolerating po. Objective Exam General Appearance: no apparent distress Neurologic Exam: alert, oriented x 3, cooperative Skin Exam: normal color, warm, dry Respiratory Exam: normal breath sounds, lungs clear, No crackles/rales, No rhonchi, No wheezing Cardiovascular Exam: regular rate/rhythm, normal heart sounds Extremity Exam: No pedal edema, No swelling (ANASTASIYA/SCD in plce) Back Exam: normal inspection OBJECTIVE DATA Vital Signs: Vital Signs - 24 hr Temp Pulse Resp BP Pulse Ox 09/30/16 07:59 98.2 F 106 H 18 109/58 94 L 09/30/16 04:00 98.0 F 105 H 18 129/64 93 L 09/30/16 00:00 98.0 F 104 H 17 121/75 93 L 09/29/16 21:05 92 L 09/29/16 20:00 17 09/29/16 19:57 98.1 F 102 H 17 102/60 91 L 09/29/16 16:00 97.8 F 20 128/66 95 09/29/16 12:00 18 09/29/16 11:16 94 L Pain Assessment - Last Documented Pain Intensity 7 Pain Scale Used [facility] Intake and Output: Intake & Output 09/27/16 09/28/16 09/29/16 09/30/16 11:59 11:59 11:59 11:59 Intake Total 1515 3359 Output Total 300 Balance 1215 3359 Weight 74.956 kg Lab Results: Lab Results-Last 24 Hours 09/29/16 09/30/16 09/30/16 Range/Units 18:39 05:20 05:20 WBC 5.3 (4.0-10.5) K/mm3 RBC 2.57 L (4.1-5.4) M/mm3 Hgb 8.7 L 8.7 L (12.0-16.0) gm/dl Hct 26.8 L 26.6 L (35-47) % MCV 103.5 H (78-100) fl MCH 33.8 H (26-32) pg MCHC 32.7 (32-36) g/dl RDW 21.7 H (11.5-14.0) % Plt Count 115 L (150-450) K/mm3 MPV 11.6 H (6-9.5) fl Gran % 62.2 (36.0-66.0) % Lymphocytes % 25.1 (24.0-44.0) % Monocytes % 11.4 (0.0-12.0) % Eosinophils % 1.1 (0.00-5.0) % Basophils % 0.2 (0.0-0.4) % Basophils # 0.01 (0-0.4) INR (0.8-3.0) Sodium 138 (136-145) mEq/L Potassium 3.3 L (3.5-5.1) mEq/L Chloride 105 (98-107) mEq/L Carbon Dioxide 22.4 (21-32) mEq/L Anion Gap 14.3 (5-15) MEQ/L BUN 6 L (9-20) mg/dL Creatinine 0.77 (0.55-1.30) mg/dl Estimated GFR > 60 ML/MIN Glucose 90 (70-110) MG/DL Calcium 7.3 L (8.5-10.1) mg/dL Magnesium 1.3 L (1.8-2.4) mg/dL Total Bilirubin 11.8 H (0.2-1.0) mg/dL AST 115 H (15-37) U/L ALT 37 (12-78) U/L Alkaline Phosphatase 112 (46-116) U/L Serum Total Protein 6.0 L (6.4-8.2) gm/dL Albumin 1.9 L (3.4-5.0) g/dL 09/30/16 Range/Units 05:20 WBC (4.0-10.5) K/mm3 RBC (4.1-5.4) M/mm3 Hgb (12.0-16.0) gm/dl Hct (35-47) % MCV (78-100) fl MCH (26-32) pg MCHC (32-36) g/dl RDW (11.5-14.0) % Plt Count (150-450) K/mm3 MPV (6-9.5) fl Gran % (36.0-66.0) % Lymphocytes % (24.0-44.0) % Monocytes % (0.0-12.0) % Eosinophils % (0.00-5.0) % Basophils % (0.0-0.4) % Basophils # (0-0.4) INR 1.59 (0.8-3.0) Sodium (136-145) mEq/L Potassium (3.5-5.1) mEq/L Chloride (98-107) mEq/L Carbon Dioxide (21-32) mEq/L Anion Gap (5-15) MEQ/L BUN (9-20) mg/dL Creatinine (0.55-1.30) mg/dl Estimated GFR ML/MIN Glucose (70-110) MG/DL Calcium (8.5-10.1) mg/dL Magnesium (1.8-2.4) mg/dL Total Bilirubin (0.2-1.0) mg/dL AST (15-37) U/L ALT (12-78) U/L Alkaline Phosphatase (46-116) U/L Serum Total Protein (6.4-8.2) gm/dL Albumin (3.4-5.0) g/dL Assessment/Plan (1) C. difficile colitis Current Visit: Yes Status: Acute Assessment & Plan: Improving on IV flagyl and po vancomycin. (2) Dehydration Current Visit: Yes Status: Acute Assessment & Plan: continue IV fluids, still some elevated HR today. Code(s): E86.0 - DEHYDRATION (3) Hypokalemia Current Visit: Yes Status: Acute Assessment & Plan: start po potassium. recheck tomorrow. Code(s): E87.6 - HYPOKALEMIA (4) Hypomagnesemia Current Visit: Yes Status: Acute Assessment & Plan: start po mag ox today. recheck tomorrow. Code(s): E83.42 - HYPOMAGNESEMIA (5) Anemia Current Visit: Yes Status: Acute Qualifiers: Anemia type: unspecified type Qualified Code(s): D64.9 - Anemia, unspecified Assessment & Plan: could be somewhat dliutional, will continue to monitor, hemoccult stool. Code(s): D64.9 - ANEMIA, UNSPECIFIED (6) Thrombocytopenia Current Visit: Yes Status: Acute Assessment & Plan: unsure the etiology. recheck tomorrow.
[2016-09-30] MEDS: Klor Con 10 MEQ PO SCH (11:14)
[2016-09-30] MEDS: MAG-OX 400 PO SCH (11:15)
[2016-09-30] MEDS: KEPPRA 500 MG PO SCH ×2 (17:28→21:46)
[2016-09-30] MEDS: PROTONIX 40 MG IV IV SCH (17:48)
[2016-10-01] MEDS: FLAGYL 500 MG IVPB 100 ML IV SCH ×4 (00:35→17:07)
[2016-10-01] MEDS: Sodium Chloride 0.9% W/ 20 mEq KCl/LITER 1,000 ML IV SCH ×2 (05:28→17:08)
[2016-10-01 06:17] LABS: Eosinophil % 0.9 % (0.00-5.0); Granulocytes % 69.3 % (36.0-66.0); Lymphocytes % 22.3 % (24.0-44.0); Mean Cell Volume 104.8 fl (78-100); Monocytes % 7.5 % (0.0-12.0); Platelet Count 107 K/mm3 (150-450); Red Blood Count 2.71 M/mm3 (4.1-5.4); Red Cell Distribution Width 21.2 % (11.5-14.0); White Blood Count 5.6 K/mm3 (4.0-10.5)
[2016-10-01 06:23] LABS: Mean Corpuscular Hemoglobin 33.5 pg (26-32)
[2016-10-01 06:48] LABS: ANION GAP 15.5 MEQ/L (5-15); BLOOD UREA NITROGEN 3 mg/dL (9-20); CHLORIDE 106 mEq/L (98-107); Carbon Dioxide 22.2 mEq/L (21-32); Glucose 82 MG/DL (70-110); MAGNESIUM 1.1 mg/dL (1.8-2.4); Potassium 3.5 mEq/L (3.5-5.1); SODIUM 140 mEq/L (136-145)
[2016-10-01] MEDS: KEPPRA 500 MG PO SCH ×2 (09:40→21:44)
[2016-10-01] MEDS: MAG-OX 400 PO SCH ×2 (09:40→21:44)
[2016-10-01] MEDS: Klor Con 10 MEQ PO SCH (09:40)
[2016-10-01] MEDS: VANCOMYCIN 25MG/ML COMPOUND KIT PO SCH ×4 (09:41→21:47)
[2016-10-01] MEDS: Zofran 4 MG/2 ML VIAL IV PRN (09:45)
[2016-10-01] MEDS: Norco 10/325 MG Tablet PO PRN ×2 (10:06→21:46)
--- NOTE | 2016-10-01 11:54 | PCM.NOTE ---
Date and Time: 10/01/16 1149 Subjective Assessment: Pt is not having any pain, had two stools this morning. Four stools total yesterday. Just feeling "icky" today overall. Not much appetite - tolerating fluids. Objective Exam General Appearance: no apparent distress Neurologic Exam: alert, oriented x 3, cooperative Skin Exam: warm, dry, jaundice Respiratory Exam: normal breath sounds, lungs clear, No crackles/rales, No rhonchi Cardiovascular Exam: regular rate/rhythm, normal heart sounds Gastrointestinal/Abdomen Exam: soft, normal bowel sounds, No tenderness, No distention, No mass Extremity Exam: other (ANASTASIYA hose in place), No pedal edema, No swelling OBJECTIVE DATA Vital Signs: Vital Signs - 24 hr Temp Pulse Resp BP Pulse Ox 10/01/16 11:00 96 10/01/16 08:00 98.3 F 113 H 18 88/54 96 10/01/16 04:00 18 10/01/16 03:54 360 F 108 H 18 103/58 96 10/01/16 00:00 98.1 F 112 H 19 120/64 93 L 09/30/16 20:10 93 L 09/30/16 20:00 98.6 F 105 H 17 113/56 93 L 09/30/16 16:00 98.0 F 101 H 18 94 L 09/30/16 12:00 102 H 18 120/58 93 L Pain Assessment - Last Documented Pain Intensity 10 Pain Scale Used 0-10 Pain Scale Intake and Output: Intake & Output 09/28/16 09/29/16 09/30/16 10/01/16 11:59 11:59 11:59 11:59 Intake Total 1515 3359 3418 Output Total 300 600 Balance 1215 3359 2818 Weight 74.956 kg Lab Results: Lab Results-Last 24 Hours 09/30/16 10/01/16 10/01/16 Range/Units 00:46 05:40 05:40 WBC 5.6 (4.0-10.5) K/mm3 RBC 2.71 L (4.1-5.4) M/mm3 Hgb 9.1 L (12.0-16.0) gm/dl Hct 28.4 L (35-47) % MCV 104.8 H (78-100) fl MCH 33.5 H (26-32) pg MCHC 32.0 (32-36) g/dl RDW 21.2 H (11.5-14.0) % Plt Count 107 L (150-450) K/mm3 MPV 11.0 H (6-9.5) fl Gran % 69.3 H (36.0-66.0) % Lymphocytes % 22.3 L (24.0-44.0) % Monocytes % 7.5 (0.0-12.0) % Eosinophils % 0.9 (0.00-5.0) % Basophils % 0.0 (0.0-0.4) % Basophils # 0 (0-0.4) Sodium 140 (136-145) mEq/L Potassium 3.5 (3.5-5.1) mEq/L Chloride 106 (98-107) mEq/L Carbon Dioxide 22.2 (21-32) mEq/L Anion Gap 15.5 H (5-15) MEQ/L BUN 3 L (9-20) mg/dL Creatinine 0.82 (0.55-1.30) mg/dl Estimated GFR > 60 ML/MIN Glucose 82 (70-110) MG/DL Calcium 7.4 L (8.5-10.1) mg/dL Magnesium 1.1 L (1.8-2.4) mg/dL Stool Occult Blood NEGATIVE (Negative) Assessment/Plan (1) C. difficile colitis Current Visit: Yes Status: Acute Assessment & Plan: She is on IV flagyl and po levaquin. Feeling overall a little worse today, but stools have not worsened and vitals are stable, afebrile, and no abdominal pain. Overall she feels better than before admission. Possibly side effect of antibiotic. (2) Dehydration Current Visit: Yes Status: Resolved Code(s): E86.0 - DEHYDRATION (3) Hypokalemia Current Visit: Yes Status: Resolved Assessment & Plan: When she is discharged, she would like a potassium pill that's coated like the one provided here. The one she gets from [facility] is too large and gets stuck in her throat. Code(s): E87.6 - HYPOKALEMIA (4) Hypomagnesemia Current Visit: Yes Status: Acute Assessment & Plan: remains low. recheck in a.m. increase mag ox to 400 po BID. Code(s): E83.42 - HYPOMAGNESEMIA (5) Anemia Current Visit: Yes Status: Acute Qualifiers: Anemia type: unspecified type Qualified Code(s): D64.9 - Anemia, unspecified Assessment & Plan: stable, hgb was 8.7 yesterday, 9.1 today. Code(s): D64.9 - ANEMIA, UNSPECIFIED (6) Thrombocytopenia Current Visit: Yes Status: Acute Assessment & Plan: platelets decreaseing, 115 yesterday and 107 here. Pt with liver disease, but could also be SE of med or idiopathic (was wnl on admission). recheck in a.m. (7) Cirrhosis Current Visit: Yes Status: Chronic (8) Weakness Current Visit: Yes Status: Chronic Assessment & Plan: PT consult tomorrow. Supposed to get PT outpatient. Code(s): R53.1 - WEAKNESS (9) DVT prophylaxis Current Visit: Yes Status: Acute Assessment & Plan: On TEDs; SCDs re-applied. Code(s): DEQ4031 -
[2016-10-01 12:50] LABS: BILIRUBIN,TOTAL 11.8 mg/dL (0.2-1.0); Direct Bilirubin 7.98 MG/DL (0.0-0.2); Total Protein 6.3 gm/dL (6.4-8.2)
[2016-10-01] MEDS ORDERED: LIORESAL 10 MG PO PRN (13:33)
[2016-10-01] MEDS: THERAGRAN MULTIVITAMIN PO SCH (13:48)
[2016-10-01] MEDS: Effexor XR 75 MG PO SCH (13:50)
[2016-10-01] MEDS: FOLATE 1 MG PO SCH (13:50)
[2016-10-01] MEDS: VITAMIN B-1 100 MG PO SCH (13:50)
[2016-10-01] MEDS ORDERED: Klor Con 10 MEQ PO SCH (14:00)
[2016-10-01] MEDS: PROTONIX 40 MG IV IV SCH (16:34)
[2016-10-01] MEDS ORDERED: MAG-OX 400 PO SCH (22:00)
[2016-10-02] MEDS: FLAGYL 500 MG IVPB 100 ML IV SCH ×5 (00:33→23:55)
[2016-10-02] MEDS: Sodium Chloride 0.9% W/ 20 mEq KCl/LITER 1,000 ML IV SCH ×3 (04:52→19:42)
[2016-10-02 05:48] LABS: BASOPHIL % 0.3 % (0.0-0.4); Eosinophil % 1.2 % (0.00-5.0); Granulocytes % 65.7 % (36.0-66.0); Lymphocytes % 21.8 % (24.0-44.0); Mean Cell Volume 103.8 fl (78-100); Mean Platelet Volume 11.3 fl (6-9.5); Platelet Count 105 K/mm3 (150-450); Red Blood Count 2.62 M/mm3 (4.1-5.4); White Blood Count 6.7 K/mm3 (4.0-10.5)
[2016-10-02 05:54] LABS: ALKALINE PHOSPHATASE 110 U/L (46-116); ANION GAP 17.2 MEQ/L (5-15); BILIRUBIN,TOTAL 10.7 mg/dL (0.2-1.0); BLOOD UREA NITROGEN 4 mg/dL (9-20); CHLORIDE 108 mEq/L (98-107); Carbon Dioxide 20.4 mEq/L (21-32); Glucose 88 MG/DL (70-110); Potassium 3.7 mEq/L (3.5-5.1); SGOT/AST 104 U/L (15-37); SGPT/ALT 40 U/L (12-78); SODIUM 142 mEq/L (136-145); Total Protein 5.8 gm/dL (6.4-8.2)
[2016-10-02 06:11] LABS: Mean Corpuscular Hemoglobin 33.5 pg (26-32)
[2016-10-02] MEDS: Magnesium 1 Gm / 100 Ml D5W*** 100 ML IV SCH ×3 (07:09→08:16)
--- NOTE | 2016-10-02 07:45 | PCM.NOTE ---
Date and Time: 10/02/16 0743 Subjective Assessment: still having loose stools but have improved, feeling much better than before admission. Objective Exam General Appearance: no apparent distress, alert Respiratory Exam: normal breath sounds, lungs clear, No respiratory distress Cardiovascular Exam: regular rate/rhythm, normal heart sounds Gastrointestinal/Abdomen Exam: soft, No tenderness, No mass Extremity Exam: normal inspection, normal range of motion OBJECTIVE DATA Vital Signs: Vital Signs - 24 hr Temp Pulse Resp BP Pulse Ox 10/02/16 04:00 98.0 F 105 H 18 115/70 95 10/02/16 00:00 98.0 F 101 H 17 98/57 97 10/01/16 20:00 16 10/01/16 19:52 98.0 F 107 H 16 105/62 92 L 10/01/16 16:00 98.5 F 110 H 18 127/81 94 L 10/01/16 12:00 18 10/01/16 11:59 98.3 F 110 H 18 114/62 95 10/01/16 11:00 96 10/01/16 08:00 98.3 F 113 H 18 88/54 96 Pain Assessment - Last Documented Pain Intensity 2 Pain Scale Used 0-10 Pain Scale Intake and Output: Intake & Output 09/29/16 09/30/16 10/01/16 10/02/16 11:59 11:59 11:59 11:59 Intake Total 1515 3359 3418 2109 Output Total 300 600 Balance 1215 3359 2818 2109 Weight 74.956 kg Lab Results: Lab Results-Last 24 Hours 10/01/16 10/01/16 10/02/16 Range/Units 12:20 12:20 05:25 WBC (4.0-10.5) K/mm3 RBC (4.1-5.4) M/mm3 Hgb (12.0-16.0) gm/dl Hct (35-47) % MCV (78-100) fl MCH (26-32) pg MCHC (32-36) g/dl RDW (11.5-14.0) % Plt Count (150-450) K/mm3 MPV (6-9.5) fl Gran % (36.0-66.0) % Lymphocytes % (24.0-44.0) % Monocytes % (0.0-12.0) % Eosinophils % (0.00-5.0) % Basophils % (0.0-0.4) % Basophils # (0-0.4) Sodium (136-145) mEq/L Potassium (3.5-5.1) mEq/L Chloride (98-107) mEq/L Carbon Dioxide (21-32) mEq/L Anion Gap (5-15) MEQ/L BUN (9-20) mg/dL Creatinine (0.55-1.30) mg/dl Estimated GFR ML/MIN Glucose (70-110) MG/DL Calcium (8.5-10.1) mg/dL Magnesium (1.8-2.4) mg/dL Total Bilirubin 11.8 H (0.2-1.0) mg/dL Direct Bilirubin 7.98 H (0.0-0.2) MG/DL AST 119 H (15-37) U/L ALT 40 (12-78) U/L Alkaline Phosphatase 116 (46-116) U/L Ammonia 42 H 76 H (11-32) MMOL/l Serum Total Protein 6.3 L (6.4-8.2) gm/dL Albumin 2.0 L (3.4-5.0) g/dL 10/02/16 10/02/16 Range/Units 05:25 05:25 WBC 6.7 (4.0-10.5) K/mm3 RBC 2.62 L (4.1-5.4) M/mm3 Hgb 8.8 L (12.0-16.0) gm/dl Hct 27.2 L (35-47) % MCV 103.8 H (78-100) fl MCH 33.5 H (26-32) pg MCHC 32.4 (32-36) g/dl RDW 21.0 H (11.5-14.0) % Plt Count 105 L (150-450) K/mm3 MPV 11.3 H (6-9.5) fl Gran % 65.7 (36.0-66.0) % Lymphocytes % 21.8 L (24.0-44.0) % Monocytes % 11.0 (0.0-12.0) % Eosinophils % 1.2 (0.00-5.0) % Basophils % 0.3 (0.0-0.4) % Basophils # 0.02 (0-0.4) Sodium 142 (136-145) mEq/L Potassium 3.7 (3.5-5.1) mEq/L Chloride 108 H (98-107) mEq/L Carbon Dioxide 20.4 L (21-32) mEq/L Anion Gap 17.2 H (5-15) MEQ/L BUN 4 L (9-20) mg/dL Creatinine 0.89 (0.55-1.30) mg/dl Estimated GFR > 60 ML/MIN Glucose 88 (70-110) MG/DL Calcium 7.3 L (8.5-10.1) mg/dL Magnesium 1.0 L* (1.8-2.4) mg/dL Total Bilirubin 10.7 H (0.2-1.0) mg/dL Direct Bilirubin (0.0-0.2) MG/DL AST 104 H (15-37) U/L ALT 40 (12-78) U/L Alkaline Phosphatase 110 (46-116) U/L Ammonia (11-32) MMOL/l Serum Total Protein 5.8 L (6.4-8.2) gm/dL Albumin 2.0 L (3.4-5.0) g/dL Assessment/Plan (1) C. difficile colitis Current Visit: Yes Status: Acute Assessment & Plan: on flagyl and po vanc (2) Cirrhosis Current Visit: Yes Status: Chronic (3) Hypokalemia Current Visit: Yes Status: Resolved Assessment & Plan: replaced Code(s): E87.6 - HYPOKALEMIA (4) Hypomagnesemia Current Visit: Yes Status: Acute Assessment & Plan: 2 g rider ordered today, receiving max ox 400mg bid Code(s): E83.42 - HYPOMAGNESEMIA (5) Failure to thrive Current Visit: Yes Status: Acute Assessment & Plan: PT consult Code(s): IBQ3550 -
[2016-10-02] MEDS: THERAGRAN MULTIVITAMIN PO SCH (09:52)
[2016-10-02] MEDS: MAG-OX 400 PO SCH ×2 (09:53→22:09)
[2016-10-02] MEDS: FOLATE 1 MG PO SCH (09:53)
[2016-10-02] MEDS: VITAMIN B-1 100 MG PO SCH (09:53)
[2016-10-02] MEDS: KEPPRA 500 MG PO SCH ×2 (09:53→22:09)
[2016-10-02] MEDS: Effexor XR 75 MG PO SCH (09:53)
[2016-10-02] MEDS: Klor Con 10 MEQ PO SCH (09:53)
[2016-10-02] MEDS: VANCOMYCIN 25MG/ML COMPOUND KIT PO SCH ×4 (09:54→22:34)
[2016-10-02] MEDS ORDERED: NON-FORMULARY ITEM (Multivitamin [Multivitamins] 1 EACH) PO SCH (10:00)
[2016-10-02] MEDS ORDERED: NON-FORMULARY ITEM (Venlafaxine Hcl [Venlafaxine Hcl Er] 150 MG) PO SCH (10:00)
[2016-10-02] MEDS ORDERED: NON-FORMULARY ITEM (Potassium Chloride 20 Meq [Klor-Con 20 Meq] 20 MEQ) PO SCH (10:00)
[2016-10-02] MEDS: Norco 10/325 MG Tablet PO PRN ×2 (10:02→22:09)
[2016-10-02] MEDS: PROTONIX 40 MG IV IV SCH (17:34)
[2016-10-03] MEDS: FLAGYL 500 MG IVPB 100 ML IV SCH ×2 (05:14→11:17)
[2016-10-03 05:19] LABS: Mean Cell Volume 103.8 fl (78-100); Mean Corpuscular Hemoglobin 33.2 pg (26-32); Mean Platelet Volume 11.4 fl (6-9.5); Platelet Count 89 K/mm3 (150-450); Red Blood Count 2.65 M/mm3 (4.1-5.4); Red Cell Distribution Width 20.4 % (11.5-14.0); White Blood Count 5.7 K/mm3 (4.0-10.5)
[2016-10-03 05:38] LABS: ALBUMIN 1.8 g/dL (3.4-5.0); ALKALINE PHOSPHATASE 105 U/L (46-116); ANION GAP 15.5 MEQ/L (5-15); BILIRUBIN,TOTAL 9.5 mg/dL (0.2-1.0); BLOOD UREA NITROGEN 4 mg/dL (9-20); CHLORIDE 109 mEq/L (98-107); Carbon Dioxide 20.3 mEq/L (21-32); Glucose 84 MG/DL (70-110); MAGNESIUM 1.3 mg/dL (1.8-2.4); Potassium 3.5 mEq/L (3.5-5.1); SGPT/ALT 32 U/L (12-78); SODIUM 141 mEq/L (136-145); Total Protein 5.8 gm/dL (6.4-8.2)
[2016-10-03 06:07] LABS: SGOT/AST 81 U/L (15-37)
[2016-10-03 07:29] VITALS: O2SAT 93
[2016-10-03] MEDS: Sodium Chloride 0.9% W/ 20 mEq KCl/LITER 1,000 ML IV SCH (07:48)
[2016-10-03] MEDS: VITAMIN B-1 100 MG PO SCH (09:10)
[2016-10-03] MEDS: MAG-OX 400 PO SCH (09:10)
[2016-10-03] MEDS: FOLATE 1 MG PO SCH (09:11)
[2016-10-03] MEDS: VANCOMYCIN 25MG/ML COMPOUND KIT PO SCH ×2 (09:11→12:29)
[2016-10-03] MEDS: KEPPRA 500 MG PO SCH (09:11)
[2016-10-03] MEDS: Klor Con 10 MEQ PO SCH (09:11)
[2016-10-03] MEDS: THERAGRAN MULTIVITAMIN PO SCH (09:11)
[2016-10-03] MEDS: Effexor XR 75 MG PO SCH (09:11)
[2016-10-03 11:13] VITALS: BP 117/60; PULSE 118
[2016-10-03] MEDS: Zofran 4 MG/2 ML VIAL IV PRN (11:19)
--- NOTE | 2016-10-03 13:38 | PCM.DS ---
Discharge Summary Date of Admission: 09/28/16 17:25 Admitting Physician: NAVIN TATE Primary Care Provider: NAVIN TATE Allergies Allergies No Known Drug Allergies Allergy (Verified 09/28/16 17:51) Hospital Summary - Hospital Course Hospital Course: Pt with cirrhosis of the liver and Crohn's disease, admitted with C. diff diarrhea. Put on flagyl and vacomycin and has improved steadily. She is tolerating po well. Does continue to have 3-4 stools/day. No abd pain. Platelets have decreased throughout her stay. She is feeling ready to go home today. - Vitals & Intake/Output Vital Signs: Vital Signs Temperature 97.8 F 10/03/16 11:12 Pulse Rate 118 H 10/03/16 11:12 Respiratory Rate 23 10/03/16 11:12 Blood Pressure 117/60 10/03/16 11:12 O2 Sat by Pulse Oximetry 93 L 10/03/16 11:12 Intake & Output: Intake & Output 10/01/16 10/02/16 10/03/16 10/04/16 11:59 11:59 11:59 11:59 Intake Total 3418 2109 3102 Output Total 600 Balance 2818 2109 3102 - Lab Result Diagrams: 10/03/16 05:10 10/03/16 05:10 Lab Results-Last 24 Hrs: Lab Results-Last 24 Hours 10/03/16 10/03/16 Range/Units 05:10 05:10 WBC 5.7 (4.0-10.5) K/mm3 RBC 2.65 L (4.1-5.4) M/mm3 Hgb 8.8 L (12.0-16.0) gm/dl Hct 27.5 L (35-47) % MCV 103.8 H (78-100) fl MCH 33.2 H (26-32) pg MCHC 32.0 (32-36) g/dl RDW 20.4 H (11.5-14.0) % Plt Count 89 L (150-450) K/mm3 MPV 11.4 H (6-9.5) fl Sodium 141 (136-145) mEq/L Potassium 3.5 (3.5-5.1) mEq/L Chloride 109 H (98-107) mEq/L Carbon Dioxide 20.3 L (21-32) mEq/L Anion Gap 15.5 H (5-15) MEQ/L BUN 4 L (9-20) mg/dL Creatinine 1.03 (0.55-1.30) mg/dl Estimated GFR > 60 ML/MIN Glucose 84 (70-110) MG/DL Calcium 7.8 L (8.5-10.1) mg/dL Magnesium 1.3 L (1.8-2.4) mg/dL Total Bilirubin 9.5 H (0.2-1.0) mg/dL AST 81 H (15-37) U/L ALT 32 (12-78) U/L Alkaline Phosphatase 105 (46-116) U/L Serum Total Protein 5.8 L (6.4-8.2) gm/dL Albumin 1.8 L (3.4-5.0) g/dL Slides for Path Review YES - Procedures and Test Procedures and Tests throughout Hospitalization: Therapy Orders & Screens 09/28/16 18:32 Smoking Cessation Education Comment: Diagnosis: Cirrhosis w/ encephalopathy; hypokalemia; hypomagnesemia Smoking Status: Current every day smoker How long have you smoked: 30 + Have you smoked in the past 12 months: Yes Approximately how many cigarettes per day: 1/2 PACK/DAY Do you dip or chew tobacco: No ST Screen per Nursing Assess Comment: Protocol Order Physician Instructions: Greater than [address] Admission Screening Reason For Exam: Triggered on Admission Diagnosis: Cirrhosis w/ encephalopathy; hypokalemia; hypomagnesemia CVA/Dyshpagia/Aphasia: No Cognitive Deficits: Yes Dehydration/Nutrition Deficit: Yes Reflux: No Oral-Motor Difficulties: No Pneumonia: No Longterm Resident: No Total Points: 8 Discharge Exam General Appearance: no apparent distress Neurologic Exam: alert, oriented x 3, cooperative Skin Exam: normal color, warm, dry Respiratory Exam: normal breath sounds, lungs clear, No crackles/rales, No rhonchi, No wheezing Cardiovascular Exam: regular rate/rhythm, normal heart sounds Gastrointestinal/Abdomen Exam: soft, normal bowel sounds, No tenderness, No distention, No mass Extremity Exam: No pedal edema, No swelling Final Diagnosis/Problem List - Final Discharge Diagnosis/Problem (1) C. difficile colitis Current Visit: Yes Status: Acute Assessment & Plan: Rolf on po flagyl and vancomycin as she is doing so well on the combined regimen. F/u with DR. Tate next week. (2) Dehydration Current Visit: Yes Status: Resolved (3) Hypokalemia Current Visit: Yes Status: Resolved Assessment & Plan: doing well on home dose of potassium. (4) Hypomagnesemia Current Visit: Yes Status: Acute Assessment & Plan: continue home dose; had not been receiving that here. Recheck in 1 wk. recheck BM P in1 wk. (5) Anemia Current Visit: Yes Status: Acute Assessment & Plan: recheck in1 wk (CBC). stable. (6) Thrombocytopenia Current Visit: Yes Status: Acute Assessment & Plan: decreasing, likely due to liver disease - recheck in 1 week. (7) Cirrhosis Current Visit: Yes Status: Chronic (8) Weakness Current Visit: Yes Status: Chronic (9) DVT prophylaxis Current Visit: Yes Status: Acute - Discharge Disposition: Home, Self-Care Condition: Stable Prescriptions: New Metronidazole [Flagyl] 500 mg PO QID #40 tablet Potassium Chloride 10 Meq Tab* [Klor Con 10 MEQ] 20 meq PO DAILY #30 tab Hydrocodone/APAP 10/325 mg [[place] 10/325 MG Tablet] 1 tab PO Q4H PRN PRN #40 tablet PRN Reason: Pain Vancomycin HCl [Vancomycin 25Mg/ml Compound Kit] 10 ml PO QID #1 bottle Continue Magnesium Oxide [Magnesium] 800 mg PO BID Venlafaxine HCl [Venlafaxine HCl ER] 150 mg PO DAILY Potassium Chloride 20 Meq [Klor-Con 20 MEQ] 20 meq PO DAILY Multivitamin [Multivitamins] 1 each PO DAILY Levetiracetam 500 mg PO BID Folic Acid 1 mg PO DAILY Baclofen 10 mg [Lioresal 10 mg] 10 mg PO TID PRN PRN Reason: spasms Acetaminophen/Diphenhydramine [Acetaminophen Pm Caplet] 1 each PO HS Thiamine HCl 100 mg PO DAILY Non-Formulary Drug [Non-Formulary Item] 1 tab PO BID Follow up with: NAVIN TATE MD [Primary Care Provider] - 10/11/16 10:30 am Forms: Patient Portal Information
== END 2016-10-03 14:45 | disposition home or self-care (01) | DRG 371 ==
LOC: ED 13:56 → MED SURG 17:25
PROVIDERS: ADMIT Family Medicine; ATTEND Family Medicine
DX: A04.7 Enterocolitis due to Clostridium difficile (principal); G93.40 Encephalopathy, unspecified; K50.90 Crohn's disease, unspecified, without complications; E86.0 Dehydration; E87.6 Hypokalemia; E83.42 Hypomagnesemia; D64.9 Anemia, unspecified; D69.6 Thrombocytopenia, unspecified; K74.60 Unspecified cirrhosis of liver; R53.1 Weakness; F32.9 Major depressive disorder, single episode, unspecified; N93.9 Abnormal uterine and vaginal bleeding, unspecified; Z79.899 Other long term (current) drug therapy; Z86.73 Personal history of transient ischemic attack (TIA), and cerebral infarction without residual deficits; Z90.49 Acquired absence of other specified parts of digestive tract; Z72.0 Tobacco use; R62.51 Failure to thrive (child)
CPT/HCPCS: 36000; 36415; 36430; 71010; 80048; 80053; 80076; 81000; 82140; 82150; 82272; 83605; 83690; 83735; 84132; 84484; 85014; 85018; 85025; 85027; 85610; 86850; 86900; 86901; 86922; 87040; 87493; 93005; 94760; 96360; 96361; 96365; 96366; 96367; 96374; 96375; 99285; J2405; J3010; J3475; J3480; P9016; P9612